=== PATIENT | female | born 1945 | race Caucasian/White ===

== ENCOUNTER 2024-01-13 14:01 | Inpatient (IN) ==
[2024-01-13 14:41] LABS: ABS Basophils 0.1 10^3/uL (0.0-0.1); ABS Lymphocytes 0.8 10^3/uL (1.0-4.8); Eosinophil % 0.3 %; Hematocrit 37.7 % (35-45); Hemoglobin 12.2 g/dL (11.5-14.3); Lymphocyte % 8.1 %; Mean Corpuscular Hemoglobin 27.1 pg (27-33); Mean Corpuscular Hgb Conc 32.3 g/dL (31-36); Mean Corpuscular Volume 83.8 fL (80-97); Mean Platelet Volume 7.9 fL (7.5-11.2); Platelet Count 296 10^3/uL (150-450); Red Cell Distribution Width 15.9 % (12-17)
[2024-01-13 15:08] LABS: High Sens Troponin Baseline 16 pg/mL (<15)
[2024-01-13 15:43] LABS: ALT 18 U/L (7-52); Albumin 3.7 g/dL (3.2-5.2); Albumin/Globulin Ratio 1.7 (1-3); Alkaline Phosphatase 103 U/L (35-149); Anion Gap 8 mmol/L (2-16); Blood Urea Nitrogen 14 mg/dL (6-24); CO2 Carbon Dioxide 28 mmol/L (22-32); Calcium 8.7 mg/dL (8.6-10.3); Chloride 102 mmol/L (101-111); Creatine Kinase 121 U/L (10-223); Creatinine, Serum 0.93 mg/dL (0.51-0.95); Globulin 2.2 g/dL (2-4); Glucose 98 mg/dL (70-100); Sodium 138 mmol/L (135-145); Total Bilirubin 0.3 mg/dL (0.2-1.0); Total Protein 5.9 g/dL (6.4-8.9); eGFR CKD-EPI 62.1 (>60)
[2024-01-13 15:52] LABS: TSH Ultra Thyroid Stim Horm 1.45 mcIU/mL (0.34-5.60)
[2024-01-13] MEDS: Acetaminop/Codeine 300mg/30mg TAB PO ONE (16:03)
[2024-01-13 16:27] LABS: High Sensitivity Troponin 1 Hr 15 pg/mL (<15)
[2024-01-13 16:34] LABS: Magnesium 1.6 mg/dL (1.9-2.7); Potassium Redraw 3.5 mmol/L (3.5-5.0)
[2024-01-13] MEDS ORDERED: Senna TAB 8.6 mg TAB PO PRN (16:43)
[2024-01-13] MEDS ORDERED: Polyethylene Glycol 3350 17 GM PACKET PO PRN (16:43)
[2024-01-13] MEDS: Enoxaparin 40 MG/0.4 ML SYR SUBCUT SCH (17:55)
[2024-01-13 18:32] LABS: INR 1.16 (0.83-1.13)
[2024-01-13 19:15] LABS: Albumin 3.4 g/dL (3.2-5.2); Albumin/Globulin Ratio 1.7 (1-3); Calcium 8.3 mg/dL (8.6-10.3); Creatinine, Serum 0.99 mg/dL (0.51-0.95); Potassium 3.6 mmol/L (3.5-5.0); Total Bilirubin 0.2 mg/dL (0.2-1.0); Total Protein 5.4 g/dL (6.4-8.9); eGFR CKD-EPI 57.6 (>60)
[2024-01-13] MEDS: Remdesivir 100 mg Vial 200 MG in NS 0.9% 250 ml 210 ML IV ONE (20:30)
[2024-01-13 20:54] LABS: Urine Appearance Turbid; Urine Bilirubin Negative (Negative); Urine Blood 2+ (Negative); Urine Color Yellow; Urine Glucose Negative (Negative); Urine Ketones Negative (Negative); Urine Nitrite 2+ (Negative); Urine Protein Trace (Negative); Urine Specific Gravity 1.021 (1.002-1.030); Urine Urobilinogen Negative (Negative)
[2024-01-13 21:14] LABS: Urine Bacteria 1+ /HPF (Absent); Urine Granular Casts Present /LPF (Absent); Urine Red Blood Cell 1+(3-5/hpf) /HPF (0-Trace); Urine Squamous Epithelial Cell Present /HPF (Absent); Urine White Blood Cell 2+(11-20/hpf) /HPF (0-Trace)
[2024-01-14 06:20] LABS: INR 1.1 (0.83-1.13)
[2024-01-14 07:16] LABS: Albumin 3.3 g/dL (3.2-5.2); Albumin/Globulin Ratio 1.6 (1-3); Calcium 8.2 mg/dL (8.6-10.3); Creatinine, Serum 0.91 mg/dL (0.51-0.95); Globulin 2.1 g/dL (2-4); Potassium 4.1 mmol/L (3.5-5.0); Total Bilirubin 0.2 mg/dL (0.2-1.0); Total Protein 5.4 g/dL (6.4-8.9); eGFR CKD-EPI 63.8 (>60)
[2024-01-14] MEDS ORDERED: Benzocaine/Menthol LOZ PO PRN (11:18)
[2024-01-14] MEDS: Magnesium Sulfate 2 gm BAG 2 GM/50 ML BAG IVPB ONE (13:34)
[2024-01-14 13:50] VITALS: BP 149/70
[2024-01-14] MEDS ORDERED: Remdesivir 100 mg Vial 100 MG in NS 0.9% 250 ml 230 ML IV SCH (21:00)
== END 2024-01-14 18:25 | disposition home or self-care (01) | DRG 177 ==
LOC: EDHOLD 14:01 → ED 14:01 → OBSVTOIN 16:43 → MED 20:33
PROVIDERS: ADMIT Internal Medicine; ATTEND Internal Medicine